=== PATIENT | male | born 1965 | race Caucasian/White ===

== ENCOUNTER 2019-06-14 13:51 | Inpatient (IN) ==
[2019-06-14] MEDS ORDERED: SODIUM CHLORIDE 0.9% 500 ML IV STA (14:29)
[2019-06-14 15:05] LABS: Basophils # 0.1 10*3/uL (0.0-0.2); Basophils % 0.9 % (0.0-0.8); Eosinophils % 0.3 % (0.00-10.9); Hematocrit 44.6 VOL% (42.0-52.0); Hemoglobin 14.9 GM/DL (14.0-18.0); Immature Granulocytes % 0.5 %; Immature Granulocytes Absolute 0.03 #; Lymphocytes # 0.9 10*3/uL (1.4-4.0); Mean Corpuscular HGB Conc 33.4 GM/DL (32-36); Mean Corpuscular Volume 93.3 FL (87-102); Mean Platelet Volume 8.9 FL (9.6-12.0); Monocytes % 9.3 % (1.7-12.7); Platelet Count 191 T/CUMM (130-400); Red Blood Count 4.78 MC/CUMM (3.8-5.5); Red Cell Distribution Width 12.6 % (9.3-17.3); White Blood Count 5.8 T/CUMM (4-12)
[2019-06-14 15:28] LABS: Troponin I < 0.015 NG/ML (0.00-0.045)
[2019-06-14 15:38] LABS: Albumin 4.3 G/DL (3.4-5.0); Bilirubin,Total 0.5 MG/DL (0.2-1.0); Calcium 8.9 MG/DL (8.5-10.1); Osmolality,Calculated 272.7 MOS/KG (273-304); Total Protein 8.2 G/DL (6.4-8.3)
[2019-06-14 16:24] LABS: Apearance,Urine CLEAR (Clear); Bilirubin,Urine Negative (Negative); Blood, Urine Negative (Negative); Glucose,Urine (UA) Negative (Negative); Ketones,Urine 20 mg/dL (Negative); Mucus,Urine Occasional /LPF (Occasional); Nitrite,Urine Negative (Negative); Protein,Urine Negative; RBC,Urine <1 /HPF (0-4); Urine Color Straw (Yellow); Urine Specific Gravity 1.008 (1.001-1.035); Urine Urobilinogen < 2.0 EU/DL (0.2-1.0)
[2019-06-14 16:30] LABS: Barbiturates Screen,Urine Negative (Negative); Benzodiazepines Screen,Urine Negative (Negative); Cannabinoid Screen,Urine Negative (Negative); Opiate Screen,Urine Negative (Negative); Phencyclidine Screen,Urine Negative (Negative)
[2019-06-14] MEDS ORDERED: LABETALOL 20 MG/4 ML SYRINGE IV PRN (18:20)
[2019-06-14 19:36] LABS: Risk Ratio 2.48; VLDL CHOLESTEROL 19.4 MG/DL
[2019-06-14] MEDS: SODIUM CHLORIDE 0.9% 1,000 ML IV SCH (22:46)
[2019-06-14] MEDS: ENOXAPARIN 40 MG/0.4 ML SYRINGE SUBCUT SCH (22:49)
[2019-06-14] MEDS: ATORVASTATIN 40 MG TABLET PO SCH (22:49)
[2019-06-15 04:45] LABS: Basophils # 0.1 10*3/uL (0.0-0.2); Basophils % 0.8 % (0.0-0.8); Eosinophils # 0.3 10*3/uL (0.0-0.87); Eosinophils % 4.4 % (0.00-10.9); Hematocrit 42.2 VOL% (42.0-52.0); Hemoglobin 13.8 GM/DL (14.0-18.0); Immature Granulocytes % 0.7 %; Immature Granulocytes Absolute 0.04 #; Lymphocytes # 1.6 10*3/uL (1.4-4.0); Lymphocytes % 26.8 % (21.2-54.2); Mean Corpuscular HGB Conc 32.7 GM/DL (32-36); Mean Corpuscular Volume 94.8 FL (87-102); Mean Platelet Volume 9.4 FL (9.6-12.0); Monocytes % 17.2 % (1.7-12.7); Neutrophils % 50.1 % (38.7-73.9); Platelet Count 174 T/CUMM (130-400); Red Blood Count 4.45 MC/CUMM (3.8-5.5); Red Cell Distribution Width 12.8 % (9.3-17.3); White Blood Count 5.9 T/CUMM (4-12)
[2019-06-15 05:16] LABS: Atypical Lymphocytes Few; Eosinophils 4 % (0-10); Lymphocytes 23 % (20-55); Segmented Neutrophils 61 % (50-85); Total Cells Counted 100
[2019-06-15 05:17] LABS: Hypochromasia Slight; Platelet Estimate Adequate
[2019-06-15 05:18] LABS: Calcium 8.1 MG/DL (8.5-10.1); Osmolality,Calculated 278.4 MOS/KG (273-304)
[2019-06-15] MEDS: SODIUM CHLORIDE 0.9% 1,000 ML IV SCH ×3 (06:20→16:59)
[2019-06-15] MEDS: ASPIRIN EC 81 MG TABLET PO SCH (08:56)
[2019-06-15] MEDS: ENOXAPARIN 40 MG/0.4 ML SYRINGE SUBCUT SCH (20:42)
[2019-06-15] MEDS: ATORVASTATIN 40 MG TABLET PO SCH (20:42)
[2019-06-16] MEDS: ASPIRIN EC 81 MG TABLET PO SCH (09:08)
[2019-06-16 09:20] VITALS: BP 139/83
== END 2019-06-16 11:30 | disposition home or self-care (01) | DRG 69 ==
LOC: N.ED 13:51 → SUATTDRO 18:20 → N.EDINP 18:20 → N.4E 22:20
PROVIDERS: ADMIT Phlebology; ATTEND Internal Medicine Cardiovascular Disease